=== PATIENT | female | born 2005 | race Caucasian/White ===

== ENCOUNTER 2025-05-03 10:13 | Emergency (ER) | payer OTHER, SELFPAY ==
[2025-05-03 10:17] VITALS: BP 140/99
[2025-05-03 10:32] VITALS: BP 106/57
--- NOTE | 2025-05-03 11:17 | ED.GENMED ---
History of Present Illness
General
Chief Complaint: Crisis Evaluation
Time Seen by Provider: 05/03/25 10:34
History of Present Illness
History of Present Illness:
20-year-old female presents to the emergency department for evaluation of vague suicidal ideation. She has no plan or intent to harm herself. She was speaking with her therapist this morning and was thus sent to the emergency department for
referral to partial program or intensive outpatient program. She has been compliant with all of her medications. No access to weapons
Review of Systems
Review of Systems
Allergies reviewed?: Yes
All Other Systems: ROS reviewed and negative except as documented in HPI and ROS
Phy Exam
Physical Exam
Physical Exam:
GEN: Well appearing, NAD, WDWN
HEENT: Oral mucosa moist, no scleral icterus
Cardiac: Regular rate
Lung: No respiratory distress, no tachypnea
MSK: No gross deformity or injuries
Skin: Good color, no pallor or jaundice, no rashes
Neuro: AO x3, moves all extremities freely
Psych: Calm, cooperative
Course
Orders/Labs/Results
Orders:
Orders
05/03/25 10:16
1:1 Observation - Suicide/ Violent Behavior As Directed
Crisis Consult Urgent
Reason for Consult: +SI
05/03/25 11:39
Basic Metabolic Panel Urgent
[facility]
Abnormal Lab Results
05/03/25
11:39
Creatinine 0.5 L mg/dL
(0.6-1.0)
Glucose 112 H mg/dl
(70-99)
[place] < 0.2 L mmol/L
(0.6-1.2)
05/03/25 11:39
Vital Signs
Initial and Last Documented VS:
Initial Vital Signs
Temp Pulse Resp BP Pulse Ox
97.7 F 80 18 140/99 97
05/03/25 10:17 05/03/25 10:17 05/03/25 10:17 05/03/25 10:17 05/03/25 10:17
Last Documented Vital Signs
Temp Pulse Resp BP Pulse Ox
97.7 F 78 16 106/57 98
05/03/25 10:17 05/03/25 10:32 05/03/25 10:32 05/03/25 10:32 05/03/25 11:18
*Pulse Oximetry
SaO2: 98
Oxygen Mode of Delivery: Room air
Patient hypoxic: no
*Critical Care Note
Total Time (30-74mins, 75-104mins- exclusive of procedures): Not Applicable
ED Attending Note
-
Portions of this chart may have been created with voice recognition software.� Occasional wrong word or��sound alike� substitutions may have occurred due to the inherent limitations of voice recognition software.
Discharge Plan
Departure
Patient Disposition: Home (Routine Discharge)
Date of Disposition: 05/03/25
Time of Disposition: 11:17
Patient with high blood pressure during this ER visit?: No
Discharge Problem:
Depression
Instructions: Depression, Adult (DC)
Activity Restrictions/Additional Instructions:
Follow up with resources provided by crisis
I will call you if your lithium level is out of range
Interventions
Interventions:
*Risk Screen - Suicide Last Done: 05/03/25 10:15
*General Assessment Last Done: 05/03/25 11:50
*Neglect/Abuse Screening Last Done: 05/03/25 11:50
*ED- Fall Risk Assessment Last Done: 05/03/25 11:50
*ED COVID-19 Vaccine History Last Done: 05/03/25 11:50
*Nursing Disposition Last Done: 05/03/25 11:58
ED-Psychological Assessment Last Done: 05/03/25 11:50
Discharge Date and Time
Discharge Date/Time: 05/03/25 11:55
Print Language: MALAWIAN
--- NOTE | 2025-05-03 11:21 | EDRN ---
acid conditioning worker Marcello informed this RN that pt will be given outpt resources once she is registered. This RN called registration at this time. Also Patsy GARCIA saw pt and is medically clearing pt post lab draw for BMP and lithium level.
--- NOTE | 2025-05-03 11:40 | EDRN ---
Ordered labs drawn and sent at this time. pick pack worker Marcello in room w/ pt discussing outpt options w/ pt.
[2025-05-03 12:40] LABS: Blood Urea Nitrogen 11 mg/dl (7-17); Calcium 9.7 mg/dl (8.4-10.2); Carbon Dioxide 24 mmol/L (22-30); Chloride 107 mmol/L (98-107); Glucose 112 mg/dl (70-99); Lithium < 0.2 mmol/L (0.6-1.2); Potassium 4.3 mmol/L (3.5-5.1); Sodium 139 mmol/L (135-145); eGFR > 60.00
== END 2025-05-03 11:55 | disposition home or self-care (01) ==
LOC: EMR 10:13
PROVIDERS: Physician Assistant; EMERGENCY PHYSICIAN Emergency Medicine; FAMILY PHYSICIAN Nurse Practitioner
DX: F32.A Depression, unspecified (principal); R45.851 Suicidal ideations
CPT/HCPCS: 99283; 80048; 80178